=== PATIENT | male | born 1955 | race Two or more races ===

== ENCOUNTER 2025-06-25 12:35 | Emergency (ER) | payer OTHER ==
[~2025-06-25] VITALS: Ht 180.3 cm; Wt 56.9 kg
--- NOTE | 2025-06-25 13:45 | ED.PDOC ---
GI ASSESSMENT HPI Comments 70 y.o male presents to the ED for a chief complaint of chronic constipation. Patient reports he has not passed a bowel movement in the past couple of months and is experiencing chills with fecal urgency. Patient has a history of a hernia, states constipation is associated with hernia however denies any abdominal pain or bulging. He also denies fever, chills, nausea, vomiting. He admits to marijuana, methamphetamine, and tobacco use. Chief Complaint: Constipation Time Seen by MD: 13:34 Reviewed Notes: Nurses Notes, Medications, Allergies Allergies: Coded Allergies: NO KNOWN ALLERGIES (Unverified , 06/25/25) Information Source: Patient Mode of Arrival: Ambulatory Timing: Months Duration: Since onset Quality: None Vomitus: None Stool: Empty Severity: Moderate Recent: None Recent Hx of: None Pain Location: None Modifying Factors: Nothing Associated sign and symptoms: Constipation Past Medical History Past Medical History (Other): hernia Surgical History: Appendectomy, Tonsillectomy Family History Family History: Reviewed,noncontributory to illness Social History Smoker: Cigarettes Alcohol: Denies ETOH Use Drugs: Marijuana, Methamphetamine Lives In: Home Constitutional: reports: chills; denies: diaphoresis, fatigue, fever, malaise, sweats, weakness, others EENTM: denies: blurred vision, double vision, ear bleeding, ear discharge, ear drainage, ear pain, ear ringing, eye pain, eye redness, hearing loss, mouth pain, mouth swelling, nasal discharge, nose bleeding, nose congestion, nose pain, photophobia, tearing, throat pain, throat swelling, voice changes, others Respiratory: denies: cough, hemoptysis, orthopnea, SOB at rest, shortness of breath, SOB with excertion, stridor, wheezing, others Cardiovascular: denies: chest pain, dizzy spells, diaphoresis, Dyspnea on exertion, edema, irregular heart beat, left arm pain, lightheadedness, palpitations, PND, syncope, others Gastrointestinal: reports: constipated; denies: abdomen distended, abdominal pain, blood streaked bowels, diarrhea, dysphagia, difficulty swallowing, hematem esis, melena, nausea, poor appetite, poor fluid intake, rectal bleeding, rectal pain, vomiting, others Genitourinary: denies: burning, dysuria, flank pain, frequency, hematuria, incontinence, penile discharge, penile sore, pain, testicle pain, testicle swelling, urgency, others Neurological: denies: dizziness, fainting, headache, left sided numbness, left sided weakness, numbness, paresthesia, pre-existing deficit, right sided numbness, right sided weakness, seizure, speech problems, tingling, tremors, weakness, others Musculoskeletal: denies: back pain, gout, joint pain, joint swelling, muscle pain, muscle stiffness, neck pain, others Integumetry: denies: bruises, change in color, change in hair/nails, dryness, laceration, lesions, lumps, rash, wounds, others Allergic/Immunocompromised: denies: Difficulty Healing, Frequent Infections, Hives, Itching, others Hematologic/Lymphatic: denies: anemia, blood clots, easy bleeding, easy bruising, swollen glands, others Endocrine: denies: excessive hunger, excessive sweating, excessive thirst, excessive urination, flushing, intolerance to cold, intolerance to heat, un explained weight gain, unexplained weight loss, others Psychiatric: denies: anxiety, bipolar disorder, depression, hopeless, panic disorder, schizophrenia, sleepless, suicidal, others All Other Systems: Reviewed and Negative Physical Exam General Appearance: Moderate Distress HEENT: Normal ENT Inspection, Pharynx Normal, TMs Normal Neck: Full Range of Motion, Non-Tender, Normal, Normal Inspection Respiratory: Chest Non-Tender, Lungs Clear, No Accessory Muscle Use, No Respiratory Distress, Normal Breath Sounds Cardiovascular: No Edema, No JVD, No Murmur, No Gallop, Normal Peripheral Pulses, Regular Rate/Rhythm Breast Exam: Deferred Gastrointestinal: Diffuse, No Organomegaly, No Pulsatile Mass, Normal Bowel Sounds, Soft, Tenderness Genitalia: Deferred Pelvic: Deferred Rectal: Deferred Extremities: No calf tenderness, Normal capillary refill, Normal inspection, Normal range of motion, Non-tender, No pedal edema Musculoskeletal : Apperance: Normal Neurologic: Alert, tutorial laboratory supervisor II-XII nml as Tested, Motor Weakness, Normal Affect, Normal Mood, No Sensory Deficits Cerebellar Function: Normal Reflexes: Normal Skin: Dry, Pallor, Warm Lymphatic: No Adenopathy Was a procedure done? Was a procedure done?: No GI differential Dx Differential Diagnosis: Bowel Obstruction, Constipation, Inflammatory BD X-Ray, Labs, Meds, VS Vital Signs Date Time Temp Pulse Resp B/P (MAP) Pulse Ox O2 Delivery O2 Flow Rate FiO2 06/25/25 14:48 98.2 93 18 122/85 (97) 98 98.2 06/25/25 14:48 83 18 98 Room Air 06/25/25 13:00 98.1 95 18 110/73 (85) 95 98.1 06/25/25 12:37 97.6 100 16 148/88 95 97.6 Lab Test 06/25/25 14:28 Range/Units White Blood Count 13.3 H 4.4-10.8 10^3/uL Red Blood Count 3.99 L 4.5-5.90 10^6/uL Hemoglobin 12.5 L 13.5-17.5 g/dL Hematocrit 37.4 L 41.0-53.0 % Mean Corpuscular Volume 93.8 80.0-100.0 fL Mean Corpuscular Hemoglobin 31.4 28.0-32.0 pg Mean Corpuscular Hemoglobin Concent 33.5 32.0-36.0 g/dL Red Cell Distribution Width 13.5 11.8-14.3 % Platelet Count 431 140-450 10^3/uL Mean Platelet Volume 6.9 6.9-10.8 fL Neutrophils (%) (Auto) 79.4 37.0-80.0 % Lymphocytes (%) (Auto) 9.3 L 10.0-50.0 % Monocytes (%) (Auto) 10.5 0.0-12.0 % Eosinophils (%) (Auto) 0.3 0.0-7.0 % Basophils (%) (Auto) 0.5 0.0-2.0 % Neutrophils # (Auto) 10.5 H 1.6-8.6 10 ^3/uL Lymphocytes # (Auto) 1.2 0.4-5.4 10 ^3/uL Monocytes # (Auto) 1.4 H 0-1.3 10 ^3/uL Eosinophils # (Auto) 0 0-0.8 10 ^3/uL Basophils # (Auto) 0.1 0-0.2 10 ^3/uL Nucleated Red Blood Cells 0.1 % Sodium Level 140 136-145 mmol/L Potassium Level 3.8 3.5-5.1 mmol/L Chloride Level 107 98-107 mmol/L Carbon Dioxide Level 27 20-31 mmol/L Anion Gap 6 5-15 Blood Urea Nitrogen 12 9-23 mg/dL Creatinine 0.73 0.700-1.30 mg/dL Glomerular Filtration Rate Calc 98 >90 mL/min BUN/Creatinine Ratio 16.4 10.0-20.0 Serum Glucose 75 74-106 mg/dL Calcium Level 9.4 8.7-10.4 mg/dL Total Bilirubin 0.3 0.2-1.0 mg/dL Aspartate Amino Transferase (AST) 19 13-40 U/L Alanine Aminotransferase (ALT) 15 7-40 U/L Alkaline Phosphatase 145 H 46-116 U/L Total Protein 6.9 5.7-8.2 g/dL Albumin 4.1 3.2-4.8 g/dL Lipase 26 12-53 U/L Current Medications Medications (Trade) Dose Ordered Sig/Reji Route Start Time Stop Time Status Last Admin Sodium Chloride 500 ml @ 500 mls/hr Q1H ONCE IVB 06/25/25 14:00 06/25/25 14:59 DC 06/25/25 14:06 CAT scan of the abdomen and pelvis shows: IMPRESSION: 1. Scattered Fluid-filled, Thickened, and hyperemic small bowel loops, stomach, and duodenum which could reflect infectious or inflammatory gastroenteritis. 2. Nonobstructed loop of right lower quadrant small bowel coursing into a moderate-sized right inguinal hernia. 3. Patchy nodular and ground-glass opacities in the basilar right middle and lower lobes as well as bronchial wall thickening which could reflect atypical pneumonia. This could be on the basis of aspiration given inspissated secretions in segmental and subsegmental right lower lobe airways. 4. Hypodense segment 2 liver lesion demonstrating peripheral nodular enhancement likely cavernous hemangioma. 5. Ectasia of the abdominal aorta with moderate to marked mixed atherosclerotic plaque. 6. Moderate narrowing of the origin and proximal right common iliac artery by predominantly soft atherosclerotic plaque. IV Hep-Lock was established and the patient was given normal saline at 500 cc bolus. The lipase is within normal limits The patient's CBC shows an elevated white blood cell count of 13.3 The chemistry panel is within normal limits. The bilirubin is within normal limits The patient is still having a significant amount of abdominal pain. There is a concern that this patient has had a significant amount of weight loss and so we are going to admit the patient to the hospitalist. Images Reviewed?: Images reviewed and evaluated by me Time of 1ST Reevaluation: 13:41 Reevaluation 1ST: Unchanged Patient Education/Counseling: Diagnosis, Treatment, Prognosis Family Education/Counseling: No Family Present SEPSIS Sepsis Screen Date sepsis recognized/suspect: Jun 25, 2025 Time Sepsis recognized/suspect: 1239 Recent Procedure: No On Antibiotic Therapy: No Respiratory Rate >20: No Heart Rate >90: Yes Temp<36 C (96.8 F) or >38.3 C: No SBP <90 or MAP <65 mmHG: No New Acute Mental Status Change: No Is the patient on CPAP, BIPAP,: No Physician Orders Urinalysis (06/25/25 13:47) Ct Ab Pel With Iv Con Only (06/25/25 13:47) Heplock Iv (06/25/25 13:47) Vital Signs Date Time Temp Pulse Resp B/P (MAP) Pulse Ox O2 Delivery O2 Flow Rate FiO2 06/25/25 14:48 98.2 93 18 122/85 (97) 98 98.2 06/25/25 14:48 83 18 98 Room Air 06/25/25 13:00 98.1 95 18 110/73 (85) 95 98.1 06/25/25 12:37 97.6 100 16 148/88 95 97.6 Laboratory Tests Test 06/25/25 14:28 White Blood Count 13.3 10^3/uL (4.4-10.8) H Medications Medications Dose Ordered Sig/Reji Route Start Time Stop Time Status Last Admin Dose Admin Sodium Chloride 500 ml @ 500 mls/hr Q1H ONCE IVB 06/25/25 14:00 06/25/25 14:59 DC 06/25/25 14:06 Departure 1 Departure Time of Disposition: 16:22 Impression: Primary Impression: Intractable abdominal pain Additional Impressions: Weight loss Failure to thrive Qualified Codes: R62.7 - Adult failure to thrive Disposition: ADMITTED INPATIENT Admit to: Med Surg Condition: Fair Critical Care Note Critical Care Time?: No Stability Stability form required: Yes Unstable for transfer: ED Physician Assesment (Clinical assesment) I personally scribed for STONEY BELL MD ([email or web address]) on 06/25/25 at 13:45. Electronically submitted by Mikayla Boone ([facility]). STONEY BELL MD Jun 25, 2025 13:45
[2025-06-25] MEDS: SODIUM CHLORIDE 0.9% 500 ML IVB ONE (14:06)
[2025-06-25 15:10] LABS: Hematocrit 37.4 % (41.0-53.0); Hemoglobin 12.5 g/dL (13.5-17.5); Mean Corpuscular Hemoglobin 31.4 pg (28.0-32.0); Mean Corpuscular Volume 93.8 fL (80.0-100.0); Nucleated Red Blood Cells % 0.1 %
[2025-06-25 15:17] LABS: Alanine Aminotransferase 15 U/L (7-40); Albumin 4.1 g/dL (3.2-4.8); Alkaline Phosphatase 145 U/L (46-116); Anion Gap 6 (5-15); BUN/Creatinine Ratio 16.4 (10.0-20.0); Bilirubin, Total 0.3 mg/dL (0.2-1.0); Blood Urea Nitrogen 12 mg/dL (9-23); Calcium 9.4 mg/dL (8.7-10.4); Carbon Dioxide 27 mmol/L (20-31); Chloride 107 mmol/L (98-107); Glucose 75 mg/dL (74-106); Lipase 26 U/L (12-53); Potassium 3.8 mmol/L (3.5-5.1); Sodium 140 mmol/L (136-145); Total Protein 6.9 g/dL (5.7-8.2)
--- NOTE | 2025-06-25 16:16 | DVH ---
CLINICAL HISTORY: Abdominal pain TECHNIQUE: CT of the abdomen and pelvis was performed with intravenous contrast, 100 mL Omnipaque 300 injected This exam was performed according to our departmental dose optimization program. Up-to-date CT equipment and radiation dose reduction techniques are utilized as appropriate. CTDI: 6.67 DLP: 312.82 WID: COMPARISON: Report from CT ABD/PEL on DOS: 03/13/25 FINDINGS: Lower Thorax: There are patchy nodular and ground-glass opacities within the basilar right middle and lower lobes as well as bronchial wall thickening. There are inspissated secretions in segmental and subsegmental airways in the right lower lobe. There is a linear consolidation in the right lower lobe. Normal- sized heart. Liver and Biliary system: Normal-sized liver. Major portal veins are patent. The gallbladder is normal caliber. No biliary ductal dilatation. There is a Hypodense lesion in segment 2 of the liver which demonstrates peripheral nodular enhancement measuring 1.5 cm on series 5, image 21. Spleen: Unremarkable. Adrenal Glands and Kidneys: Normal adrenal glands. There are bilateral renal hypodensities likely cysts. No hydronephrosis or nephrolithiasis. Pancreas and Retroperitoneum: Tiny calcifications predominantly in the tail of the pancreas. The pancreas enhances homogeneously. No grossly enlarged retroperitoneal lymph nodes. Aorta and Major Vessels: Abdominal aorta is ectatic with moderate to marked mixed atherosclerotic plaque. There is moderate narrowing of the origin and proximal right common iliac artery by predominantly soft though mixed atherosclerotic plaque. Moderate mixed plaque in the bilateral iliac vessels. Bowel, Mesentery and Peritoneal space: Scattered Fluid-filled and Thickened small bowel loops. The bowel loops are normal caliber. Mucosal enhancement of the duodenum and gastric mucosa. There are nonobstructed right lower quadrant small bowel loops coursing into a right inguinal hernia. Moderate retained stool in the colon. No free air or definite fluid collection. Paucity of mesenteric fat slightly limits evaluation of the peritoneal space. Pelvis: Unremarkable. Abdominal wall and Osseous Structures: Moderate-sized right inguinal hernia containing a loop of right lower quadrant small bowel. Mild right convexity scoliosis of the thoracic spine. Multilevel moderate lower thoracic and lumbar spondylosis. No destructive osseous lesion. 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 No destructive osseous lesion. IMPRESSION: 1. Scattered Fluid-filled, Thickened, and hyperemic small bowel loops, stomach, and duodenum which could reflect infectious or inflammatory gastroenteritis. 2. Nonobstructed loop of right lower quadrant small bowel coursing into a moderate-sized right inguinal hernia. 3. Patchy nodular and ground-glass opacities in the basilar right middle and lower lobes as well as bronchial wall thickening which could reflect atypical pneumonia. This could be on the basis of aspiration given inspissated secretions in segmental and subsegmental right lower lobe airways. 4. Hypodense segment 2 liver lesion demonstrating peripheral nodular enhancement likely cavernous hemangioma. 5. Ectasia of the abdominal aorta with moderate to marked mixed atherosclerotic plaque. 6. Moderate narrowing of the origin and proximal right common iliac artery by predominantly soft atherosclerotic plaque.
[2025-06-25] MEDS: IOHEXOL 300 MG/ML 100ML BOTTLE IJ ONE (16:22)
[2025-06-25 17:07] VITALS: BP 144/96; PULSE 84; RESP 18; TEMP 98.3; O2SAT 95
[2025-06-25 19:19] LABS: Urine Protein, UAD TRACE (Negative)
== END 2025-06-25 20:08 | disposition left against medical advice (07) ==
LOC: ER 12:35
DX: R10.84 Generalized abdominal pain (principal); R63.4 Abnormal weight loss; R62.7 Adult failure to thrive; F17.210 Nicotine dependence, cigarettes, uncomplicated; Z79.899 Other long term (current) drug therapy; Z90.89 Acquired absence of other organs; Z90.49 Acquired absence of other specified parts of digestive tract
CPT/HCPCS: 36415; 74177; 80053; 81001; 83690; 85025; 99285; Q9967